=== PATIENT | male | born 1960 | race Caucasian/White ===

== ENCOUNTER → 2023-12-26 15:33 | Outpatient (BNVA) | payer MEDICARE, BC, SELFPAY | PROVIDERS: Family Provider Family Medicine; PCP Family Medicine; Visit Provider Internal Medicine Cardiovascular Disease | DX: I49.8 Other specified cardiac arrhythmias (principal); R07.9 Chest pain, unspecified | CPT/HCPCS: 93005 ==

== ENCOUNTER 2024-12-03 14:59 | Outpatient (CLI) | payer MEDICARE, OTHER, SELFPAY ==
--- NOTE | 2024-12-03 15:09 | CT_ITS ---
WS: [id number] CT abdomen pelvis wo/w [id number] REASON FOR EXAM: RENAL MASS IV CONTRAST ADMINISTERED: 100 mL of Omnipaque 350. TECHNIQUE: Multiple axial images without and with intravenous contrast enhancement. Coronal and sagittal reconstructions. COMPARISON EXAMINATION: None TOTAL EXAM DLP: 2580.[address] scans at [facility] use at least one of these dose optimization techniques: automated exposure control; mA and/or kV adjustment per patient size (includes targeted exams where dose is matched to clinical indication); or iterative reconstruction. FINDINGS: ABDOMEN: Large hiatal hernia. Small very small hypodensities in the liver that are most likely simple bile cysts. Normal spleen pancreas and gallbladder. Normal adrenals. Multiple. Small cysts within the left kidney with one exophytic exophytic cyst measuring 2.3 x 2 cm. Second exophytic cyst measuring 16 x 16 mm. No calculus or hydronephrosis. Multiple very small cysts in the left kidney.Thick irregular perinephric rind, most likely old inflammatory change. No calculus or hydronephrosis. No mass, adenopathy, free fluid, or focal fluid collection. Calcified plaque in the abdominal aorta and origin of gastrointestinal and renal arteries without high-grade stenosis. Mild degenerative spondylosis with no significant lumbar vertebral abnormality. PELVIS: No free fluid, focal fluid collection, adenopathy, or mass. No abnormality of the bladder. No focal bony lesion in the pelvis. CT/CT abdomen pelvis wo/w [id number] IMPRESSION: Simple bile cysts within the liver. Renal cysts as above. No other renal mass. No acute abnormality of the abdomen or pelvis.
[2024-12-03 15:34] LABS: Blood Urea Nitrogen 11 mg/dL (8-23)
[2024-12-03] MEDS: iohexol 350 mg/mL 500 mL Btl (per mL) IV (15:41)
== END 2024-12-03 15:00 | disposition home or self-care (01) ==
LOC: RAD 15:01
PROVIDERS: Family Provider Family Medicine; PCP Family Medicine; Visit Provider Family Medicine
DX: Q61.02 Congenital multiple renal cysts (principal); K44.9 Diaphragmatic hernia without obstruction or gangrene; M47.816 Spondylosis without myelopathy or radiculopathy, lumbar region; K76.89 Other specified diseases of liver
CPT/HCPCS: 74178; 82565; 84520

== ENCOUNTER → 2024-12-24 13:17 | Outpatient (BNVA) | payer MEDICARE, SELFPAY | PROVIDERS: Family Provider Family Medicine; PCP Family Medicine; Visit Provider Internal Medicine Cardiovascular Disease | DX: I25.810 Atherosclerosis of coronary artery bypass graft(s) without angina pectoris (principal); I10 Essential (primary) hypertension; E78.5 Hyperlipidemia, unspecified; Z87.891 Personal history of nicotine dependence | CPT/HCPCS: 99213 ==